=== PATIENT | female | born 1965 | race Caucasian/White ===

== ENCOUNTER 2018-04-13 12:22 | Emergency (ER) | payer OTHER, BC ==
[2018-04-13 12:20] VITALS: O2SAT 100
[2018-04-13] MEDS ORDERED: ADENOSINE IV SOLN 3 MG/ML 2 ML VIAL ONE (12:33)
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
[2018-04-13 12:45] LABS: AUTOMATED NEUTROPHIL # 4.4 TH/MM3 (1.8-7.7); BASOPHIL # 0.1 TH/MM3 (0-0.2); BASOPHIL % 0.8 % (0.0-2.0); EOSINOPHIL # 0.1 TH/MM3 (0-0.4); HEMATOCRIT 38.1 % (35.0-46.0); HEMOGLOBIN 12.8 GM/DL (11.6-15.3); LYMPH % 25.4 % (9.0-44.0); LYMPHOCYTE # 1.7 TH/MM3 (1.0-4.8); MEAN CELL VOLUME 89.7 FL (80.0-100.0); MEAN CORPUSCULAR HEMOGLOBIN 30.1 PG (27.0-34.0); MEAN CORPUSCULAR HGB CONC 33.6 % (32.0-36.0); MEAN PLATELET VOLUME 8.1 FL (7.0-11.0); MONO % 6.4 % (0.0-8.0); MONOCYTE # 0.4 TH/MM3 (0-0.9); NEUT % 65.4 % (16.0-70.0); PLATELET COUNT 324 TH/MM3 (150-450); RED BLOOD COUNT 4.24 MIL/MM3 (4.00-5.30); RED CELL DISTRIBUTION WIDTH 12.5 % (11.6-17.2); WHITE BLOOD COUNT 6.8 TH/MM3 (4.0-11.0)
[2018-04-13] MEDS ORDERED: METOPROLOL TARTRATE 5 MG/5 ML VIAL IV PUSH ONE ×3 (12:45→14:30)
[2018-04-13 12:53] LABS: INTERNATIONAL NORMALIZED RATIO 0.9 RATIO; PROTHROMBIN TIME - PATIENT 9.4 SEC (9.8-11.6)
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
[2018-04-13] MEDS ORDERED: METO25TA3 PO (13:47)
[2018-04-13 13:49] VITALS: PULSE 141; RESP 20; O2SAT 100
[2018-04-13 13:50] VITALS: BP 136/81
[2018-04-13] MEDS ORDERED: METOPROLOL TARTRATE 25 MG TAB PO ONE (14:00)
[2018-04-13] MEDS ORDERED: KETOROLAC TROMETHAMINE 30 MG/ML (IVP) VIAL IV PUSH ONE (14:00)
[2018-04-13] MEDS ORDERED: SODIUM CHLORID 0.9% 500 ML INJ 500 ML IV ONE (14:00)
[2018-04-13 14:45] VITALS: BP 129/72; PULSE 129; RESP 14; O2SAT 99
[2018-04-13] MEDS ORDERED: LORazepam 2 MG/ML VIAL IV PUSH ONE (15:00)
[2018-04-13 23:30] LABS: MAGNESIUM 2.2 MG/DL (1.5-2.5)
[2018-04-13 23:33] LABS: TROPONIN I LESS THAN 0.02 NG/ML (0.02-0.05)
--- NOTE | 2018-04-14 13:46 | EKG ---
Date Performed: 04/13/2018 Time Performed: 13:06:20 PTAGE: 89 years EKG: Sinus rhythm NORMAL ECG Compared to PREVIOUS TRACING , the heart rate has decreased from [address]-T changes have res olved. PREVIOUS TRACING DOCTOR: Albert Espino Interpretating Date/Time 04/14/2018 13:45:22
--- NOTE | 2018-04-14 13:46 | EKG ---
Date Performed: 04/13/2018 Time Performed: 12:30:06 PTAGE: 89 years EKG: SUPRAVENTRICULAR TACHYCARDIA NONSPECIFIC ST & T-WAVE ABNORMALITY ABNORMAL RHYTHM ECG NO PREVIOUS TRACING DOCTOR: Albert Espino Interpretating Date/Time 04/14/2018 13:44:18
== END 2018-04-13 16:49 | disposition home or self-care (01) ==
LOC: EDBD 12:22 → NEPI 12:22 → NEPE 16:49
DX: I47.1 Supraventricular tachycardia (principal)
CPT/HCPCS: 71045; 71260; 74177; 80048; 82550; 83735; 84484; 85025; 85610; 85730; 86850; 86900; 86901; 93005; 96374; 96375; 96376; 99285; 99291; J0153; J1885; J2060; J7040; G0390